=== PATIENT | male | born 1950 | race Caucasian/White ===

== ENCOUNTER 2021-06-12 19:21 | Emergency (ER) | payer MEDICARE ==
[~2021-06-12] VITALS: Ht 165.1 cm; Wt 61.4 kg
[~2021-06-12 19:21] MED LIST: FOLI1TAB32 PO; MULT-484 PO; THIA100T67 PO
--- NOTE | 2021-06-12 19:30 | NUR ---
[facility] PATIENT WAS WALKING [place] AT HIS APARTMENT COMPLEX WHEN HE FELL DOWN AND HIT HIS HEAD. LACERATION PRESENT ON BACK OF HEAD, PATIENT CONTINUES TO TOUCH IT. PATIENT REPORTED ETOH. PATIENT NOT CURENTLY ANSWERING QUESTIONS IN [place]OVENIAN OR ECU[place]OREAN.
--- NOTE | 2021-06-12 19:30 | NUR ---
PATIENT NOT TOLERATING C-COLLAR, EDUCATED ON NEED AND RISKS OF NOT WEARING ONE, PATIENT CONTINUES TO NOT BE COOPERATIVE WITH WEARING C-COLLAR.
--- NOTE | 2021-06-12 19:30 | NUR ---
Note jamaal in EDM - 06/12/21 at 1959 by [facility] PATIENT WAS WALKING [place] AT HIS APARTMENT COMPLEX WHEN HE FELL DOWN AND HIT HIS HEAD. LACERATION PRESENT ON BACK OF HEAD, PATIENT CONTINUES TO TOUCH IT. PATIENT REPORTED ETOH. PATIENT NOT CURENTLY ANSWERING QUESTIONS IN [place]UTCH OR S[place] KOREAN.
[2021-06-12] MEDS ORDERED: LIDOCAINE-MPF 1%, 5ML ONE (19:51)
--- NOTE | 2021-06-12 19:59 | NUR ---
PATIENT RETURNED FROM CT, ATTEMPTED TO CLEANSE WOUND, PATIENT NOT TOLERATING CLEANSING AT THIS TIME, WILL ATTEMPT LATER.
[2021-06-12] MEDS ORDERED: LIDOCAINE 1%, 10ML INFIL ONE (20:00)
--- NOTE | 2021-06-12 20:23 | NUR ---
PATIENT WAS OUT OF BED AND DRESSED WANTING TO LEAVE. ASSISSTED PATIENT BACK TO THE [facility]. ASSISSTED WITH WOUND CLEANSING AND CLOSURE. PATIENT TOLERATED PROCEDURE.
[2021-06-12 20:53] LABS: BASOPHILS % (AUTO) 1 % (0-1); EOSINOPHILS % (AUTO) 0 % (1-7); LYMPHOCYTES % (AUTO) 34 % (22-44); MEAN CORPUSCULAR HEMOGLOBIN 31.7 pg (27.5-34.5); MEAN CORPUSCULAR HGB CONC 34.1 g/dL (33.2-36.2); MEAN PLATELET VOLUME 7.7 fL (7.4-10.4); MONOCYTES % (AUTO) 7 % (2-9); NEUTROPHILS % (AUTO) 57 % (42-75); PLATELET COUNT 190 x10^3/uL (130-400); RED BLOOD COUNT 4.58 x10^6/uL (4.38-5.82); RED CELL DISTRIBUTION WIDTH 15.1 % (9.4-14.8)
[2021-06-12 21:05] LABS: ALBUMIN 2.9 g/dL (3.4-5.0); ANION GAP 7 mmol/L (5-15); CALCIUM 8.3 mg/dL (8.5-10.1); CHLORIDE 104 mmol/L (98-107)
[2021-06-12 21:06] LABS: INTERNATIONAL NORMALIZED RATIO 1.07 (0.93-1.1); PROTHROMBIN TIME 11.4 Seconds (9.6-11.5)
[2021-06-12] MEDS ORDERED: THIAMINE 100 MG/ML, 2ML ONE (21:07)
[2021-06-12 21:09] LABS: ALANINE AMINOTRANSFERASE 42 U/L (12-78); ALKALINE PHOSPHATASE 105 U/L (45-117); BILIRUBIN,TOTAL 0.6 mg/dL (0.2-1.0); CREATININE 0.93 mg/dL (0.7-1.3); TOTAL PROTEIN 7.7 g/dL (6.4-8.2)
--- NOTE | 2021-06-12 21:32 | NUR ---
PATIENT SLEEPING ON GURNEY, REMOVED BP CUFF REFUSING TO ALLOW IT TO BE PUT BACK ON, NAD AT THIS TIME, DENIES ANY NEEDS. WILL CONTINUE TO MONITOR.
--- NOTE | 2021-06-12 21:58 | NUR ---
PATIENT STANDING IN ROOM, STEADY ON FEET, ABLE TO ANSWER QUESTIONS IN [place]. CURRENTLY DENIES PAIN. ASSISSTED BACK TO [facility]. WILL CONTINUE TO MONITOR.
[2021-06-12 22:08] VITALS: BP 102/60
--- NOTE | 2021-06-12 22:14 | NUR ---
PRECEPTOR RN: PT BACK UP OUT OF BED IN ROOM, STILL UNSTEADY GAIT WHILE WALKING, RN ASSISTED PT BACK TO BED AND USED [employer] PHONE TO EDUCATE PT ON CARE PROVIDED TODAY AND THAT WE ARE UNABLE TO DC HIM UNTIL HIS IS MORE SOBER AND ABLE TO WALK WITH A SMOOTH AND STEADY GAIT. VITAL SIGNS UPDATE, PT UPSET REGARDING NOT BEING ABLE TO LEAVE AT THIS TIME, THROWING BLANKETS, CROSSING ARMS AND REFUSING TO COMMUNICATE WITH RN AT THIS TIME. WCTM.
--- NOTE | 2021-06-12 23:01 | NUR ---
PATIENT SLEEPING ON [place] AT THIS TIME, WCTM
--- NOTE | 2021-06-12 23:53 | NUR ---
PATIENT AMBULATING IN ROOM, STEADY ON HIS FEET. DENIES PAIN. NAD AT THIS TIME.
--- NOTE | 2021-06-13 00:05 | NUR ---
PATIENT WALKED OUT OF THE DEPARTMENT VIA THE SIDE DOOR. UNABLE TO LOCATE PATIENT IN WAITING ROOM OR BY [employer]EE CART. NOTIFIED PROVIDER AND CHARGE NURSE OF PATIENT'S DEPARTURE.
[2021-06-13] MEDS ORDERED: THIAMINE 100 MG/ML, 2ML IM SCH (09:00)
== END 2021-06-13 00:07 | disposition left against medical advice (07) ==
LOC: ED 21:30
DX: S01.01XA Laceration without foreign body of scalp, initial encounter (principal); S09.90XA Unspecified injury of head, initial encounter; F10.229 Alcohol dependence with intoxication, unspecified; R94.31 Abnormal electrocardiogram [ECG] [EKG]; Y90.0 Blood alcohol level of less than 20 mg/100 ml; W01.0XXA Fall on same level from slipping, tripping and stumbling without subsequent striking against object, initial encounter; Y93.89 Activity, other specified; Y92.410 Unspecified street and highway as the place of occurrence of the external cause; Y99.8 Other external cause status
CPT/HCPCS: 12002; 36415; 70450; 80053; 80320; 85025; 85610; 85730; 93005; 96372; 99285; J3411; G0480

== ENCOUNTER 2021-06-16 01:05 | Emergency (ER) | payer SELFPAY ==
[~2021-06-16] VITALS: Ht 170.2 cm; Wt 70.4 kg
[2021-06-16 03:10] VITALS: BP 114/67
== END 2021-06-16 04:28 | disposition home or self-care (01) ==
LOC: ED 01:15
DX: R56.9 Unspecified convulsions (principal); F10.239 Alcohol dependence with withdrawal, unspecified; Y90.0 Blood alcohol level of less than 20 mg/100 ml
CPT/HCPCS: 36415; 70450; 80053; 80320; 85025; 93005; 96365; 99285; J3411; J7030